=== PATIENT | male | born 1940 | race Caucasian/White ===

== ENCOUNTER 2020-05-21 12:24 | Inpatient (IN) | payer OTHER ==
[2020-05-19 12:05] VITALS: BP 125/78
[2020-05-19 13:14] LABS: BASOPHILS % (AUTO) 0.2 % (0.0-5.0); EOSINOPHILS % (AUTO) 2.3 % (0.0-8.0); HEMATOCRIT 40.5 % (42-54); LYMPHOCYTES % (AUTO) 18.4 % (21.0-51.0); MEAN CORPUSCULAR HEMOGLOBIN 29.7 pg (27.0-33.0); MEAN CORPUSCULAR HGB CONC 32.6 g/dL (32.0-36.0); MEAN CORPUSCULAR VOLUME 91.2 fL (79-99); MONOCYTES % (AUTO) 8.6 % (3.0-13.0); NEUTROPHILS % (AUTO) 70.3 % (40.0-77.0); PLATELET COUNT (AUTO) 208 K/uL (130-400); RED BLOOD CELL COUNT(AUTO) 4.44 MIL/uL (4.50-6.20); WHITE BLOOD COUNT (AUTO) 9.5 K/uL (4.8-10.8)
[2020-05-19 13:26] LABS: CREATININE 1.9 mg/dL (0.5-1.5); POTASSIUM 4.7 mmol/L (3.5-5.1)
[2020-05-19 13:35] LABS: INR 1.24 (0.85-1.15); PARTIAL THROMBOPLASTIN TIME 28.9 SEC (26.3-35.5); PROTHROMBIN TIME 13.3 SEC (9.6-11.6)
[2020-05-19 14:02] LABS: BILIRUBIN,URINE Negative (NEGATIVE); COLOR,URINE Yellow (YELLOW); GLUCOSE, URINE (UA) Negative (NEGATIVE); KETONES,URINE Negative (NEGATIVE); LEUKOCYTE ESTERASE ,URINE Negative (NEGATIVE); NITRATE,URINE Negative (NEGATIVE); OCCULT BLOOD,URINE Trace (NEGATIVE); PROTEIN,URINE POS 1+ mg/dL (NEGATIVE); UROBILINOGEN,URINE 0.2 mg/dL (0.2-1.0)
[2020-05-19 14:04] LABS: APPEARANCE,URINE CLEAR (CLEAR)
[2020-05-19 14:26] LABS: BACTERIA,URINE Rare /HPF (None Seen); RBC,URINE 0-1 /HPF (0-1); SQUAMOUS EPITHELIAL CELL,UR Rare /HPF (0-2); WBC,URINE 0-1 /HPF (0-1)
[2020-05-20] MEDS: SODIUM CHLORIDE 0.9% 1000ML 1,000 ML IV SCH (13:00)
--- NOTE | 2020-05-20 15:41 | NUR ---
LABS ABNORMAL LABS REPORTED TO LAUREN LASSITER, FURTHER ORDERS GIVEN AND WILL BE CARRIED OUT.
--- NOTE | 2020-05-20 15:50 | NUR ---
XRAY ABNORMAL CHEST XRAY REPORTED TO LAUREN , NO FURTHER ODERS GIVEN ON CHEST XRAY
[~2020-05-21] VITALS: Ht 182.9 cm; Wt 116.8 kg
[2020-05-21] VITALS (14 sets, daily range): BP systolic 107–160; BP diastolic 87–107
[~2020-05-21 12:24] MED LIST: AMIT25TA9 PO; ASPI-1443 PO; ATOR10TA69 PO; FISH1CAP27 PO; FURO20TA4 PO; LANS30CA55 PO; LINA5TAB PO; QUIN10TA PO; SODIUM CHLORIDE 0.9% 1000ML 1,000 ML IV SCH; TAMS-1 PO; VERA240T14 PO; WARF7.5T49 PO; ZINC50TA64 PO
[2020-05-21] MEDS ORDERED: NITROGLYCERIN 2 MG/VIAL VIAL IV ONE (12:58)
[2020-05-21] MEDS ORDERED: BIVALIRUDIN 250 MG/VIAL IV ONE (12:58)
[2020-05-21] MEDS ORDERED: IOHEXOL-350 50ML VIAL IV ONE (12:58)
[2020-05-21] MEDS ORDERED: IOHEXOL 350 MG/ML 100ML INFUS..BTL IV ONE (12:58)
[2020-05-21] MEDS ORDERED: FENTANYL CITRATE PF 50 MCG/1 ML 2ML VIAL ONE (12:59)
[2020-05-21] MEDS ORDERED: MIDAZOLAM HCL 1 MG/ML 2ML VIAL ONE (12:59)
[2020-05-21] MEDS ORDERED: LIDOCAINE HCL 2% 20ML ONE (12:59)
[2020-05-21 13:05] LABS: INR 1.1 (0.85-1.15); PROTHROMBIN TIME 11.8 SEC (9.6-11.6)
[2020-05-21] MEDS ORDERED: ACET600C5 PO (13:17)
[2020-05-21] MEDS ORDERED: METOPROLOL TARTRATE 1 MG/ML 5ML VIAL IV ONE ×2 (13:47→14:14)
[2020-05-21] MEDS ORDERED: ACETAMINOPHEN-CODEINE 300/30MG TAB PO PRN ×2 (14:15)
[2020-05-21] MEDS ORDERED: HYDRALAZINE HCL 20 MG/ML VIAL IV PRN (14:15)
[2020-05-21] MEDS ORDERED: DEXTROSE 50%-WATER 50 ML DISP.SYRIN IV PRN ×2 (14:15→16:30)
[2020-05-21] MEDS ORDERED: METOPROLOL TARTRATE 1 MG/ML 5ML VIAL IV PRN ×2 (14:15→21:15)
[2020-05-21] MEDS ORDERED: GLUCAGON 1MG KIT 1 MG ML IM PRN ×2 (14:15→16:30)
--- NOTE | 2020-05-21 14:35 | NUR ---
Pt received Pt received from cath lab technologist via bed accompanied by NIK Huerta. Pt AAOx3. Has dressing to right groin dry and intact. No tenderness nor swelling to site. Pt denies any c/o. Pt is to be admitted and report was received. Son is at bedside. Pt in good spirits. Pt arrived with life vest in place and was informed by NIK Huerta that wires were broken and was need to contact rep. As per pt it occured when attempting to remove. Lifevest rep Shannon was called and made aware of consult. Pt was received with saline lock only. BNP was drawn and pharmacy was contact for meds needed to be given not available through [facility] (Lasix IV and Toporol XL). Monitors in place; pt in no distress.
[2020-05-21] MEDS ORDERED: POTASSIUM CHLORIDE 20MEQ/100ML 100 ML IV PRN (14:45)
[2020-05-21] MEDS ORDERED: POTASSIUM CHLORIDE 20 MEQ ERTAB PO PRN (14:45)
[2020-05-21] MEDS ORDERED: LIDOCAINE HCL-MPF 1% 2ML VIAL IV PRN (14:45)
[2020-05-21] MEDS ORDERED: POTASSIUM CHLORIDE 10% ELIXIR 20 MEQ/15 ML UDCUP PO PRN (14:45)
[2020-05-21] MEDS: SODIUM CHLORIDE 0.9% 1000ML 1,000 ML IV SCH (15:25)
--- NOTE | 2020-05-21 15:40 | NUR ---
Transfer Pt was transferred to room 409 via bed with son at side. Report was given to NIK Wilson regarding pt's procedure, pending consult with life vest and condition and that meds were not available to be given. Pt was left in good spirits, talkative, no pain or discomfort.
[2020-05-21] MEDS: FUROSEMIDE 10 MG/ML 2ML VIAL IV SCH (16:04)
[2020-05-21] MEDS: METOPROLOL SUCCINATE 50 MG TAB.SR.24H PO SCH (16:04)
[2020-05-21 19:26] LABS: CREATININE 1.9 mg/dL (0.5-1.5); MAGNESIUM 1.8 mg/dL (1.80-2.40); POTASSIUM 4.3 mmol/L (3.5-5.1)
[2020-05-21] MEDS: AMITRIPTYLINE HCL 25 MG TABLET PO SCH (20:11)
[2020-05-21] MEDS: ASPIRIN 81 MG EC TAB PO SCH (20:12)
[2020-05-21] MEDS: TAMSULOSIN HCL 0.4 MG CAP.ER.24H PO SCH (20:12)
[2020-05-21] MEDS: ATORVASTATIN CALCIUM 10 MG TABLET PO SCH (20:22)
--- NOTE | 2020-05-21 21:06 | NUR ---
Notified MD Timothy Mckinnon who is combination presser for the night regarding patient in afib rvr in the 118-124 after dose of PRN metoprolol 5mg IV was given with no significant changes. Patient is asymptomatic and comfortable in bed. Denies of any chest pain. Patient has history of afib for 10 years now. He ordered to change metoprolol 5mg IV to give if heart rate sustaining and greater than 120's to be given every six hours PRN. Will monitor patient closely
[2020-05-21] MEDS ORDERED: MAGNESIUM 2GM PREMIX 50ML 50 ML IV PRN (21:45)
[2020-05-21] MEDS ORDERED: MAGNESIUM 2GM PREMIX 50ML 50 ML IV ONE (21:50)
[2020-05-22] MEDS: FUROSEMIDE 10 MG/ML 2ML VIAL IV SCH (00:23)
[2020-05-22] MEDS: METOPROLOL SUCCINATE 50 MG TAB.SR.24H PO SCH ×4 (00:23→21:18)
[2020-05-22 03:42] VITALS: BP 116/88
[2020-05-22] MEDS: SODIUM CHLORIDE 0.9% 1000ML 1,000 ML IV SCH (05:15)
[2020-05-22 05:48] LABS: HEMATOCRIT 39.7 % (42-54); MEAN CORPUSCULAR HEMOGLOBIN 30.1 pg (27.0-33.0); MEAN CORPUSCULAR HGB CONC 33.5 g/dL (32.0-36.0); MEAN CORPUSCULAR VOLUME 89.8 fL (79-99); RED BLOOD CELL COUNT(AUTO) 4.42 MIL/uL (4.50-6.20); RED CELL DISTRIBUTION WIDTH 14.2 % (11.0-15.5); WHITE BLOOD COUNT (AUTO) 12.3 K/uL (4.8-10.8)
[2020-05-22 06:06] LABS: CREATININE 1.9 mg/dL (0.5-1.5); MAGNESIUM 2.2 mg/dL (1.80-2.40)
[2020-05-22 07:00] VITALS: BP 119/80
[2020-05-22 07:07] LABS: POTASSIUM 4.2 mmol/L (3.5-5.1)
[2020-05-22] MEDS: LINAGLIPTIN 5 MG TABLET PO SCH (08:15)
[2020-05-22] MEDS ORDERED: FUROSEMIDE 10 MG/ML 2ML VIAL IV SCH (09:00)
[2020-05-22] MEDS: FUROSEMIDE 40 MG TABLET PO SCH (09:00)
[2020-05-22 11:00] VITALS: BP 138/95
[2020-05-22] MEDS ORDERED: METOPROLOL SUCCINATE 50 MG TAB.SR.24H PO SCH (11:15)
[2020-05-22] MEDS: PANTOPRAZOLE SODIUM 40 MG TABLET.DR PO SCH (12:39)
--- NOTE | 2020-05-22 13:47 | NUR ---
BRANDY SANTIAGO Spoke with spouse on phone. As per spouse, patient is independent prior to admission, lives at home with spouse. Patient has a CPAP at home through [facility]. Denies any other equipments/services. Feels safe to go back home, spouse able to assist with transportation and needs as necessary. DC plan to home. CM to continue to follow up. Addendum: 05/22/20 at 1349 by IVY WEBER Amended: Links added.
--- NOTE | 2020-05-22 14:53 | NUR ---
[id number] PATIENT SIGNED IM LETTER, I FAXED IM LETTER TO [id number] AND PLACED IN CHART UNDER CONSENT TAB.
[2020-05-22 16:00] VITALS: BP 131/69
[2020-05-22] MEDS ORDERED: WARFARIN SODIUM 7.5 MG TAB PO SCH (16:00)
--- NOTE | 2020-05-22 19:20 | NUR ---
PM Assessment Received pt lying in bed moderate high back rest, pleasantly conversant with life vest on. Routine assessment done, plan of care discuss, confirmed awareness of Metoprolol dosage change to 100mg BID, importance of keeping the left vest on at all times. Pt currently denies discomfort, hoping for d/c home tomorrow.
[2020-05-22 20:00] VITALS: BP 128/86
[2020-05-22] MEDS: AMITRIPTYLINE HCL 25 MG TABLET PO SCH (21:15)
[2020-05-22] MEDS: ATORVASTATIN CALCIUM 10 MG TABLET PO SCH (21:16)
[2020-05-22] MEDS: TAMSULOSIN HCL 0.4 MG CAP.ER.24H PO SCH (21:16)
[2020-05-22] MEDS: ASPIRIN 81 MG EC TAB PO SCH (21:16)
[2020-05-23] VITALS: BP 118/84
[2020-05-23 04:00] VITALS: BP 136/93
[2020-05-23] MEDS: SODIUM CHLORIDE 0.9% 1000ML 1,000 ML IV SCH (05:21)
[2020-05-23 06:11] LABS: BASOPHILS % (AUTO) 0.3 % (0.0-5.0); EOSINOPHILS % (AUTO) 2.5 % (0.0-8.0); HEMATOCRIT 39.7 % (42-54); LYMPHOCYTES % (AUTO) 16.5 % (21.0-51.0); MEAN CORPUSCULAR HEMOGLOBIN 29.6 pg (27.0-33.0); MEAN CORPUSCULAR HGB CONC 32.5 g/dL (32.0-36.0); MEAN CORPUSCULAR VOLUME 91.1 fL (79-99); MONOCYTES % (AUTO) 11.8 % (3.0-13.0); NEUTROPHILS % (AUTO) 68.6 % (40.0-77.0); PLATELET COUNT (AUTO) 184 K/uL (130-400); RED BLOOD CELL COUNT(AUTO) 4.36 MIL/uL (4.50-6.20); RED CELL DISTRIBUTION WIDTH 14.2 % (11.0-15.5); WHITE BLOOD COUNT (AUTO) 11.9 K/uL (4.8-10.8)
[2020-05-23 06:31] LABS: CREATININE 1.9 mg/dL (0.5-1.5); POTASSIUM 4.3 mmol/L (3.5-5.1)
[2020-05-23 06:45] LABS: INR 1.06 (0.85-1.15); PROTHROMBIN TIME 11.4 SEC (9.6-11.6)
[2020-05-23] MEDS: METOPROLOL SUCCINATE 50 MG TAB.SR.24H PO SCH (07:54)
[2020-05-23] MEDS: LINAGLIPTIN 5 MG TABLET PO SCH (07:54)
[2020-05-23] MEDS: FUROSEMIDE 40 MG TABLET PO SCH (07:54)
[2020-05-23] MEDS: PANTOPRAZOLE SODIUM 40 MG TABLET.DR PO SCH (07:55)
[2020-05-23 08:00] VITALS: BP 134/97
[2020-05-23 11:21] VITALS: BP 124/72
[2020-05-23] MEDS ORDERED: METO-409 PO (11:58)
[2020-05-23] MEDS ORDERED: FURO40TA5 PO (11:58)
[2020-05-23] MEDS ORDERED: PANTOPRAZOLE SODIUM 40 MG TABLET.DR PO SCH (12:30)
--- NOTE | 2020-05-23 13:30 | NUR ---
DISCHARGE INSTRUCTIONS GIVEN TO PATIENT, SON AT BEDSIDE. MADE AWARE OF NEED TO FOLLOW UP WITH DR. ANDRES AND DR. BARRON. MADE AWARE OF MEDICATION CHANGES AND NEW PRESCRIPTIONS. PATIENT AT THIS TIME DENIES ANY CHEST PAIN OR SHORTNESS OF BREATH. IV AND TELE DISCONTINUED. PATIENT WILL BE TAKEN HOME BY HIS SON
== END 2020-05-23 13:45 | disposition home or self-care (01) | DRG 286 ==
LOC: DAH 12:24 → DAHIP 12:25 → 4BH 15:35
PROVIDERS: ADMIT Internal Medicine; ATTEND Internal Medicine
PROC: 4A023N7 Measurement of Cardiac Sampling and Pressure, Left Heart, Percutaneous Approach (ICD-10-PCS; 2020-05-21)
PROC: B2111ZZ Fluoroscopy of Multiple Coronary Arteries using Low Osmolar Contrast (ICD-10-PCS; 2020-05-21)
PROC: 5A09357 Assistance with Respiratory Ventilation, Less than 24 Consecutive Hours, Continuous Positive Airway Pressure (ICD-10-PCS; principal; 2020-05-22)
PROC: 5A09357 Assistance with Respiratory Ventilation, Less than 24 Consecutive Hours, Continuous Positive Airway Pressure (ICD-10-PCS; 2020-05-23)
DX: I13.0 Hypertensive heart and chronic kidney disease with heart failure and stage 1 through stage 4 chronic kidney disease, or unspecified chronic kidney disease (principal); I50.43 Acute on chronic combined systolic (congestive) and diastolic (congestive) heart failure; D68.69 Other thrombophilia; I48.11 Longstanding persistent atrial fibrillation; I42.9 Cardiomyopathy, unspecified; N18.30 Chronic kidney disease, stage 3 unspecified; I25.10 Atherosclerotic heart disease of native coronary artery without angina pectoris; Z88.8 Allergy status to other drugs, medicaments and biological substances; E11.22 Type 2 diabetes mellitus with diabetic chronic kidney disease; Z96.652 Presence of left artificial knee joint; E78.5 Hyperlipidemia, unspecified; Z87.891 Personal history of nicotine dependence; Z79.01 Long term (current) use of anticoagulants; Z82.49 Family history of ischemic heart disease and other diseases of the circulatory system; I48.0 Paroxysmal atrial fibrillation; Z83.2 Family history of diseases of the blood and blood-forming organs and certain disorders involving the immune mechanism
CPT/HCPCS: 36415; 71045; 80048; 81001; 82948; 83735; 83880; 84145; 85025; 85027; 85610; 85730; 93005; 93458; C1894; G0378; J0583; J1644; J1940; J2250; J3010; J3475; J3490; Q9967

== ENCOUNTER 2020-08-04 08:58 | Inpatient (IN) | payer OTHER ==
[~2020-08-04] VITALS: Ht 185.4 cm; Wt 115.4 kg
[~2020-08-04 08:58] MED LIST changes: +ACET600C5 PO; -ASPI-1443 PO; -FURO20TA4 PO; +FURO40TA5 PO; +METO-409 PO; -SODIUM CHLORIDE 0.9% 1000ML 1,000 ML IV SCH; -VERA240T14 PO
[2020-08-04 09:14] LABS: BASOPHILS % (AUTO) 0.3 % (0.0-5.0); EOSINOPHILS % (AUTO) 3.3 % (0.0-8.0); HEMATOCRIT 45.1 % (42-54); LYMPHOCYTES % (AUTO) 18.1 % (21.0-51.0); MEAN CORPUSCULAR HEMOGLOBIN 29.3 pg (27.0-33.0); MEAN CORPUSCULAR HGB CONC 32.6 g/dL (32.0-36.0); MONOCYTES % (AUTO) 9.6 % (3.0-13.0); NEUTROPHILS % (AUTO) 68.4 % (40.0-77.0); PLATELET COUNT (AUTO) 180 K/uL (130-400); RED BLOOD CELL COUNT(AUTO) 5.01 MIL/uL (4.50-6.20); RED CELL DISTRIBUTION WIDTH 15.7 % (11.0-15.5); WHITE BLOOD COUNT (AUTO) 9.9 K/uL (4.8-10.8)
[2020-08-04 09:36] LABS: PARTIAL THROMBOPLASTIN TIME 54.4 SEC (26.3-35.5)
[2020-08-04 09:41] LABS: B-TYPE NATRIURETIC PEPTIDE 1110 pg/mL (0-100)
[2020-08-04 09:45] LABS: ALBUMIN 3.3 g/dL (3.5-5.0); BILIRUBIN,TOTAL 1.7 mg/dL (0.2-1.0); CREATININE 1.7 mg/dL (0.5-1.5); POTASSIUM 3.7 mmol/L (3.5-5.1)
[2020-08-04 09:48] LABS: PROTHROMBIN TIME 46.3 SEC (9.6-11.6)
[2020-08-04 09:49] LABS: INR 5.01 (0.85-1.15)
[2020-08-04] MEDS ORDERED: NITROGLYCERIN 1GM OINT 1 INCH/1GM TD ONE (10:21)
[2020-08-04] MEDS ORDERED: FUROSEMIDE 40MG VIAL ONE (10:21)
[2020-08-04] MEDS ORDERED: ONDANSETRON 4MG INJ IV PRN (10:30)
[2020-08-04] MEDS ORDERED: ACETAMINOPHEN 325 MG TAB PO PRN ×2 (10:30)
[2020-08-04] MEDS: NITROGLYCERIN 1GM OINT 1 INCH/1GM TD SCH ×2 (10:30→18:30)
[2020-08-04] MEDS ORDERED: LACTULOSE 20 GM/30 ML UDCUP PO PRN (10:30)
[2020-08-04] MEDS ORDERED: NITROGLYCERIN 0.4 MG SL TAB SL PRN (10:30)
[2020-08-04 11:09] LABS: APPEARANCE,URINE Clear (CLEAR); BILIRUBIN,URINE Negative (NEGATIVE); COLOR,URINE Yellow (YELLOW); GLUCOSE, URINE (UA) Negative (NEGATIVE); KETONES,URINE Negative (NEGATIVE); LEUKOCYTE ESTERASE ,URINE Negative (NEGATIVE); NITRATE,URINE Negative (NEGATIVE); OCCULT BLOOD,URINE Small (NEGATIVE); PH,URINE 6.5 (5.0-8.0); PROTEIN,URINE POS 1+ mg/dL (NEGATIVE); UROBILINOGEN,URINE 0.2 mg/dL (0.2-1.0)
[2020-08-04 11:25] LABS: THYROID STIMULATING HORMONE 3.49 uIU/mL (0.36-3.74)
[2020-08-04 11:35] LABS: BACTERIA,URINE Rare /HPF (None Seen); RBC,URINE 0-1 /HPF (0-1); SQUAMOUS EPITHELIAL CELL,UR Rare /HPF (0-2); WBC,URINE 0-1 /HPF (0-1)
[2020-08-04] MEDS ORDERED: METOPROLOL TARTRATE 1 MG/ML 5ML VIAL IV PRN (13:00)
[2020-08-04] MEDS: INSULIN HUMULIN R 100 UNIT/ML 3ML SQ SCH ×2 (16:30→21:00)
[2020-08-04] MEDS ORDERED: METOPROLOL TARTRATE 25 MG TAB ONE (16:58)
[2020-08-04] MEDS ORDERED: METOPROLOL TARTRATE 50 MG TAB PO SCH (20:00)
[2020-08-04 20:15] VITALS: BP 167/107
[2020-08-04] MEDS: AMITRIPTYLINE 25 MG TABLET PO SCH (21:54)
[2020-08-04] MEDS: ATORVASTATIN 10 MG TABLET PO SCH (21:54)
[2020-08-04] MEDS: FAMOTIDINE 20MG VIAL IV SCH (21:54)
[2020-08-04] MEDS: METOPROLOL TARTRATE 25 MG TAB PO SCH (21:54)
[2020-08-04] MEDS: TAMSULOSIN HCL 0.4 MG CAP.ER.24H PO SCH (21:54)
[2020-08-04] MEDS: FUROSEMIDE 40MG VIAL IVP SCH (22:00)
[2020-08-05 00:09] VITALS: BP 146/93
[2020-08-05] MEDS: NITROGLYCERIN 1GM OINT 1 INCH/1GM TD SCH (02:56)
[2020-08-05 04:21] VITALS: BP 150/93
[2020-08-05 06:25] LABS: BASOPHILS % (AUTO) 0.3 % (0.0-5.0); EOSINOPHILS % (AUTO) 2.9 % (0.0-8.0); HEMATOCRIT 42.8 % (42-54); MEAN CORPUSCULAR HEMOGLOBIN 29.2 pg (27.0-33.0); MEAN CORPUSCULAR HGB CONC 32.7 g/dL (32.0-36.0); MEAN CORPUSCULAR VOLUME 89.4 fL (79-99); MONOCYTES % (AUTO) 9.9 % (3.0-13.0); NEUTROPHILS % (AUTO) 70.6 % (40.0-77.0); PLATELET COUNT (AUTO) 173 K/uL (130-400); RED BLOOD CELL COUNT(AUTO) 4.79 MIL/uL (4.50-6.20); RED CELL DISTRIBUTION WIDTH 15.4 % (11.0-15.5); WHITE BLOOD COUNT (AUTO) 11.6 K/uL (4.8-10.8)
[2020-08-05] MEDS: INSULIN HUMULIN R 100 UNIT/ML 3ML SQ SCH ×4 (06:32→20:48)
[2020-08-05 06:44] LABS: PARTIAL THROMBOPLASTIN TIME 48.7 SEC (26.3-35.5)
[2020-08-05 07:10] LABS: INR 3.93 (0.85-1.15); PROTHROMBIN TIME 37.1 SEC (9.6-11.6)
[2020-08-05 07:31] LABS: B-TYPE NATRIURETIC PEPTIDE 1220 pg/mL (0-100)
[2020-08-05 08:07] VITALS: BP 166/96
[2020-08-05] MEDS: LINAGLIPTIN 5 MG TABLET PO SCH (08:53)
[2020-08-05] MEDS: METOPROLOL TARTRATE 25 MG TAB PO SCH (08:53)
[2020-08-05] MEDS: FUROSEMIDE 40MG VIAL IVP SCH ×2 (08:53→20:27)
[2020-08-05] MEDS: FAMOTIDINE 20MG VIAL IV SCH (08:53)
[2020-08-05] MEDS ORDERED: METOPROLOL TARTRATE 50 MG TAB PO SCH (09:00)
[2020-08-05] MEDS ORDERED: LISINOPRIL 10 MG TABLET PO SCH (09:00)
[2020-08-05 09:40] LABS: CREATININE 1.8 mg/dL (0.5-1.5); MAGNESIUM 1.9 mg/dL (1.80-2.40); POTASSIUM 3.7 mmol/L (3.5-5.1)
[2020-08-05] MEDS: METOPROLOL SUCCINATE 50 MG TAB.SR.24H PO SCH ×2 (10:43→20:27)
[2020-08-05] MEDS: LOSARTAN 50 MG TABLET PO SCH (10:44)
[2020-08-05 12:12] VITALS: BP 153/92
[2020-08-05 18:56] VITALS: BP 154/80
[2020-08-05 20:00] VITALS: BP 139/66
[2020-08-05] MEDS: ATORVASTATIN 10 MG TABLET PO SCH (20:27)
[2020-08-05] MEDS: AMITRIPTYLINE 25 MG TABLET PO SCH (20:27)
[2020-08-05] MEDS: TAMSULOSIN HCL 0.4 MG CAP.ER.24H PO SCH (20:27)
[2020-08-06] VITALS (7 sets, daily range): BP systolic 127–157; BP diastolic 73–97
[2020-08-06 04:11] LABS: CREATININE 2.1 mg/dL (0.5-1.5); POTASSIUM 3.5 mmol/L (3.5-5.1)
[2020-08-06 04:39] LABS: INR 2.41 (0.85-1.15); PROTHROMBIN TIME 23.8 SEC (9.6-11.6)
[2020-08-06 04:40] LABS: PARTIAL THROMBOPLASTIN TIME 41.2 SEC (26.3-35.5)
[2020-08-06] MEDS: INSULIN HUMULIN R 100 UNIT/ML 3ML SQ SCH ×4 (05:15→20:36)
[2020-08-06] MEDS ORDERED: KCL 20 MEQ ERTAB PO ONE (05:15)
[2020-08-06] MEDS: FUROSEMIDE 40MG VIAL IVP SCH (09:25)
[2020-08-06] MEDS: LINAGLIPTIN 5 MG TABLET PO SCH (09:25)
[2020-08-06] MEDS: FAMOTIDINE 20MG VIAL IV SCH (09:25)
[2020-08-06] MEDS: METOPROLOL SUCCINATE 50 MG TAB.SR.24H PO SCH ×2 (09:26→22:52)
[2020-08-06] MEDS: LOSARTAN 50 MG TABLET PO SCH (09:26)
[2020-08-06] MEDS: APIXABAN 5 MG TABLET PO SCH ×2 (10:31→22:53)
[2020-08-06] MEDS ORDERED: FUROSEMIDE 40MG VIAL IV SCH (17:00)
[2020-08-06] MEDS: ATORVASTATIN 10 MG TABLET PO SCH (22:52)
[2020-08-06] MEDS: AMITRIPTYLINE 25 MG TABLET PO SCH (22:52)
[2020-08-06] MEDS: TAMSULOSIN HCL 0.4 MG CAP.ER.24H PO SCH (22:52)
[2020-08-07 03:28] VITALS: BP 126/89
[2020-08-07 04:01] LABS: BASOPHILS % (AUTO) 0.4 % (0.0-5.0); EOSINOPHILS % (AUTO) 4.6 % (0.0-8.0); HEMATOCRIT 41.5 % (42-54); LYMPHOCYTES % (AUTO) 15.3 % (21.0-51.0); MEAN CORPUSCULAR VOLUME 87.9 fL (79-99); MONOCYTES % (AUTO) 9.7 % (3.0-13.0); NEUTROPHILS % (AUTO) 69.7 % (40.0-77.0); PLATELET COUNT (AUTO) 165 K/uL (130-400); RED BLOOD CELL COUNT(AUTO) 4.72 MIL/uL (4.50-6.20); RED CELL DISTRIBUTION WIDTH 15.1 % (11.0-15.5); WHITE BLOOD COUNT (AUTO) 10.6 K/uL (4.8-10.8)
[2020-08-07 04:13] LABS: CREATININE 1.9 mg/dL (0.5-1.5); POTASSIUM 3.5 mmol/L (3.5-5.1)
[2020-08-07 04:18] LABS: B-TYPE NATRIURETIC PEPTIDE 311 pg/mL (0-100)
[2020-08-07] MEDS: INSULIN HUMULIN R 100 UNIT/ML 3ML SQ SCH ×2 (06:49→12:43)
[2020-08-07 08:00] VITALS: BP 148/80
[2020-08-07] MEDS ORDERED: FUROSEMIDE 40 MG TABLET PO SCH (09:00)
[2020-08-07] MEDS: LINAGLIPTIN 5 MG TABLET PO SCH (09:11)
[2020-08-07] MEDS: LOSARTAN 50 MG TABLET PO SCH (09:11)
[2020-08-07] MEDS: METOPROLOL SUCCINATE 50 MG TAB.SR.24H PO SCH (09:11)
[2020-08-07] MEDS: APIXABAN 5 MG TABLET PO SCH (09:11)
[2020-08-07] MEDS: FAMOTIDINE 20MG VIAL IV SCH (09:11)
[2020-08-07 11:56] VITALS: BP 119/89
[2020-08-07 16:00] VITALS: BP 126/51
[2020-08-07] MEDS ORDERED: APIX5TAB PO (16:58)
[2021-01-28] MEDS ORDERED: METO-391 PO (14:31)
[2021-03-25] MEDS ORDERED: BIMA2.5D4 OP (15:14)
[2021-03-25] MEDS ORDERED: PANT40TA54 PO (15:14)
== END 2020-08-07 17:27 | disposition home or self-care (01) | DRG 291 ==
LOC: EDH 08:58 → EDHIP 10:30 → 4CH 21:12
PROVIDERS: ADMIT Internal Medicine; ATTEND Internal Medicine
PROC: 5A09357 Assistance with Respiratory Ventilation, Less than 24 Consecutive Hours, Continuous Positive Airway Pressure (ICD-10-PCS; principal; 2020-08-06)
PROC: 5A09357 Assistance with Respiratory Ventilation, Less than 24 Consecutive Hours, Continuous Positive Airway Pressure (ICD-10-PCS; 2020-08-07)
DX: I13.0 Hypertensive heart and chronic kidney disease with heart failure and stage 1 through stage 4 chronic kidney disease, or unspecified chronic kidney disease (principal); I50.23 Acute on chronic systolic (congestive) heart failure; N17.9 Acute kidney failure, unspecified; I48.11 Longstanding persistent atrial fibrillation; I48.92 Unspecified atrial flutter; I42.8 Other cardiomyopathies; I25.10 Atherosclerotic heart disease of native coronary artery without angina pectoris; N18.30 Chronic kidney disease, stage 3 unspecified; E11.22 Type 2 diabetes mellitus with diabetic chronic kidney disease; E66.9 Obesity, unspecified; E78.5 Hyperlipidemia, unspecified; G47.33 Obstructive sleep apnea (adult) (pediatric); K21.9 Gastro-esophageal reflux disease without esophagitis; Z96.652 Presence of left artificial knee joint; R06.03 Acute respiratory distress; I34.0 Nonrheumatic mitral (valve) insufficiency; R79.1 Abnormal coagulation profile; Z68.34 Body mass index [BMI] 34.0-34.9, adult; Z79.01 Long term (current) use of anticoagulants; Z79.899 Other long term (current) drug therapy; Z87.891 Personal history of nicotine dependence; Z90.49 Acquired absence of other specified parts of digestive tract; Z88.8 Allergy status to other drugs, medicaments and biological substances; Z82.49 Family history of ischemic heart disease and other diseases of the circulatory system; Z20.822 Contact with and (suspected) exposure to COVID-19
CPT/HCPCS: 36415; 71045; 71046; 80048; 80053; 81001; 82550; 82948; 83735; 83880; 84100; 84145; 84443; 84484; 85025; 85610; 85730; 87426; 93005; 94760; G0378; J1815; J1940; J3490; U0003

== ENCOUNTER → 2020-11-26 | Outpatient (CLI) | payer OTHER ==
[~2020-11-26] MED LIST changes: +APIX5TAB PO; -WARF7.5T49 PO
== END | disposition home or self-care (01) ==
LOC: SHCH 14:30
PROVIDERS: ATTEND Internal Medicine Cardiovascular Disease
DX: I51.7 Cardiomegaly (principal); I48.0 Paroxysmal atrial fibrillation
CPT/HCPCS: 93306; 93356

== ENCOUNTER 2021-01-29 05:52 | Observation (INO) | payer OTHER ==
[2021-01-27 13:39] LABS: BASOPHILS % (AUTO) 0.4 % (0.0-5.0); EOSINOPHILS % (AUTO) 2.5 % (0.0-8.0); HEMATOCRIT 46.2 % (42-54); LYMPHOCYTES % (AUTO) 17.3 % (21.0-51.0); MEAN CORPUSCULAR HEMOGLOBIN 30.1 pg (27.0-33.0); MEAN CORPUSCULAR HGB CONC 32.5 g/dL (32.0-36.0); MEAN CORPUSCULAR VOLUME 92.6 fL (79-99); MONOCYTES % (AUTO) 12.3 % (3.0-13.0); NEUTROPHILS % (AUTO) 67.4 % (40.0-77.0); PLATELET COUNT (AUTO) 161 K/uL (130-400); RED BLOOD CELL COUNT(AUTO) 4.99 MIL/uL (4.50-6.20); RED CELL DISTRIBUTION WIDTH 15.2 % (11.0-15.5)
[2021-01-27 13:45] LABS: CREATININE 1.8 mg/dL (0.5-1.5); POTASSIUM 4.4 mmol/L (3.5-5.1)
[2021-01-27 14:14] LABS: INR 1.03 (0.85-1.15); PROTHROMBIN TIME 11.2 SEC (9.6-11.6)
[2021-01-27 14:16] LABS: PARTIAL THROMBOPLASTIN TIME 28.3 SEC (26.3-35.5)
[2021-01-28 13:29] VITALS: BP 104/70
[~2021-01-29] VITALS: Ht 182.9 cm; Wt 111.3 kg
[2021-01-29] VITALS (10 sets, daily range): BP systolic 104–170; BP diastolic 72–92
[~2021-01-29 05:52] MED LIST changes: -ACET600C5 PO; +CEFAZOLIN SODIUM 1 GM VIAL IVP SCH; +METO-391 PO; -METO-409 PO
[2021-01-29] MEDS ORDERED: BUPIVACAINE/PF 0.25% 30ML VIAL IJ ONE (07:26)
[2021-01-29] MEDS ORDERED: FENTANYL CITRATE PF 50 MCG/1 ML 2ML VIAL ONE (07:27)
[2021-01-29] MEDS ORDERED: LIDOCAINE HCL 1% MDV 50ML VIAL ONE (07:27)
[2021-01-29] MEDS ORDERED: MIDAZOLAM HCL 1 MG/ML 2ML VIAL ONE ×2 (07:27→08:11)
[2021-01-29] MEDS ORDERED: CEFAZOLIN SODIUM 1 GM VIAL ONE (07:27)
[2021-01-29] MEDS ORDERED: IODIXANOL 320 MG/ML 100 ML VIAL ONE (07:37)
[2021-01-29] MEDS ORDERED: APAP-CODEINE 300/30MG TAB PO PRN (10:15)
[2021-01-29] MEDS: METOPROLOL SUCCINATE 50 MG TAB.SR.24H PO SCH (20:45)
[2021-01-29] MEDS ORDERED: AMITRIPTYLINE 25 MG TABLET PO SCH (21:00)
[2021-01-29] MEDS ORDERED: TAMSULOSIN HCL 0.4 MG CAP.ER.24H PO SCH (21:00)
[2021-01-29] MEDS ORDERED: ATORVASTATIN 10 MG TABLET PO SCH (21:00)
[2021-01-30 03:09] VITALS: BP 140/79
[2021-01-30 04:48] LABS: HEMATOCRIT 42.4 % (42-54); MEAN CORPUSCULAR HGB CONC 33.3 g/dL (32.0-36.0); MEAN CORPUSCULAR VOLUME 90.2 fL (79-99); RED BLOOD CELL COUNT(AUTO) 4.7 MIL/uL (4.50-6.20); RED CELL DISTRIBUTION WIDTH 14.8 % (11.0-15.5); WHITE BLOOD COUNT (AUTO) 9.7 K/uL (4.8-10.8)
[2021-01-30 04:55] LABS: BILIRUBIN,TOTAL 0.9 mg/dL (0.2-1.0); CREATININE 1.7 mg/dL (0.5-1.5); PHOSPHORUS 3.1 mg/dL (2.5-4.9); POTASSIUM 4.1 mmol/L (3.5-5.1); TOTAL PROTEIN, SERUM 7.1 g/dL (6.0-8.3)
[2021-01-30 08:31] VITALS: BP 118/81
[2021-01-30] MEDS ORDERED: LINAGLIPTIN 5 MG TABLET PO SCH (09:00)
[2021-01-30] MEDS ORDERED: PANTOPRAZOLE 40 MG TAB DR PO SCH (09:00)
[2021-01-30] MEDS ORDERED: FUROSEMIDE 40 MG TABLET PO SCH (09:00)
[2021-01-30] MEDS ORDERED: ZINC SULFATE 220 CAPSULE PO SCH (09:00)
[2021-01-30] MEDS ORDERED: LISINOPRIL 10 MG TABLET PO SCH (09:00)
[2021-01-30] MEDS: METOPROLOL SUCCINATE 50 MG TAB.SR.24H PO SCH (09:50)
[2021-01-30 11:59] VITALS: BP 123/66
[2021-01-31] MEDS ORDERED: APIXABAN 5 MG TABLET PO SCH (09:00)
== END 2021-01-30 15:30 | disposition home or self-care (01) ==
LOC: DAH 05:52 → OBSVTOIN 05:53 → DAHIP 05:53 → INTOOBSV 05:53 → DAH 05:53 → 4CH 10:30
PROVIDERS: ADMIT Internal Medicine; ATTEND Internal Medicine
DX: I42.0 Dilated cardiomyopathy (principal); I48.19 Other persistent atrial fibrillation; I25.10 Atherosclerotic heart disease of native coronary artery without angina pectoris; I50.23 Acute on chronic systolic (congestive) heart failure; M19.90 Unspecified osteoarthritis, unspecified site; K21.9 Gastro-esophageal reflux disease without esophagitis; I11.0 Hypertensive heart disease with heart failure; E11.9 Type 2 diabetes mellitus without complications; E78.5 Hyperlipidemia, unspecified; D84.9 Immunodeficiency, unspecified; Z79.01 Long term (current) use of anticoagulants; Z79.899 Other long term (current) drug therapy; Z95.810 Presence of automatic (implantable) cardiac defibrillator
CPT/HCPCS: 33225; 33249; 36415 ×2; 71045; 80048; 80053; 82948 ×6; 83735; 84100; 85025; 85027; 85610; 85730; 93005; A4215; A4216; A4221; A4222; A4223 ×3; A4606; A4663; C1769; C1882; C1895; C1900; G0378 ×29; J0690; J2250 ×2; J3010; J3490 ×2; J7030; Q9967; 99156; 99157

== ENCOUNTER 2021-03-26 05:51 | Day surgery (SDC) | payer OTHER ==
[2021-03-24 11:30] LABS: BASOPHILS % (AUTO) 0.3 % (0.0-5.0); EOSINOPHILS % (AUTO) 2.6 % (0.0-8.0); HEMATOCRIT 47.5 % (42-54); LYMPHOCYTES % (AUTO) 17.2 % (21.0-51.0); MEAN CORPUSCULAR HEMOGLOBIN 29.9 pg (27.0-33.0); MEAN CORPUSCULAR HGB CONC 32.4 g/dL (32.0-36.0); MEAN CORPUSCULAR VOLUME 92.2 fL (79-99); MONOCYTES % (AUTO) 9.2 % (3.0-13.0); NEUTROPHILS % (AUTO) 70.4 % (40.0-77.0); PLATELET COUNT (AUTO) 144 K/uL (130-400); RED BLOOD CELL COUNT(AUTO) 5.15 MIL/uL (4.50-6.20); RED CELL DISTRIBUTION WIDTH 13.9 % (11.0-15.5); WHITE BLOOD COUNT (AUTO) 9.4 K/uL (4.8-10.8)
[2021-03-24 11:43] LABS: POTASSIUM 5.3 mmol/L (3.5-5.1)
[2021-03-24 12:03] LABS: INR 1.09 (0.85-1.15); PROTHROMBIN TIME 11.8 SEC (9.6-11.6)
[2021-03-24 12:04] LABS: PARTIAL THROMBOPLASTIN TIME 30.7 SEC (26.3-35.5)
[2021-03-24 15:07] VITALS: BP 119/77
[~2021-03-26] VITALS: Ht 182.9 cm; Wt 109.1 kg
[2021-03-26] VITALS (9 sets, daily range): BP systolic 87–124; BP diastolic 60–81
[~2021-03-26 05:51] MED LIST changes: +BIMA2.5D4 OP; -CEFAZOLIN SODIUM 1 GM VIAL IVP SCH; -LANS30CA55 PO; +PANT40TA54 PO
[2021-03-26] MEDS ORDERED: 0.9% NACL 500ML IV.SOLN 500 ML IV SCH (06:00)
[2021-03-26] MEDS ORDERED: 0.9%NACL 1000ML 1,000 ML IV ONE (07:11)
[2021-03-26] MEDS ORDERED: HEPARIN 10,000 UNIT/10ML (1,000 UNIT/ML) VIAL ONE (09:25)
[2021-03-26] MEDS ORDERED: MIDAZOLAM HCL 1 MG/ML 2ML VIAL ONE (09:26)
[2021-03-26] MEDS ORDERED: MEPERIDINE-PF 25 MG/ML SYG ONE (09:26)
[2021-03-26] MEDS ORDERED: LIDOCAINE HCL 400MG/20ML VIAL ONE (09:26)
[2021-03-26] MEDS ORDERED: FENTANYL CITRATE PF 50 MCG/1 ML 2ML VIAL ONE (09:56)
== END 2021-03-26 14:35 | disposition home or self-care (01) ==
LOC: DAH 05:51
PROVIDERS: ATTEND Internal Medicine Cardiovascular Disease
DX: I48.11 Longstanding persistent atrial fibrillation (principal); E11.22 Type 2 diabetes mellitus with diabetic chronic kidney disease; I13.0 Hypertensive heart and chronic kidney disease with heart failure and stage 1 through stage 4 chronic kidney disease, or unspecified chronic kidney disease; N18.9 Chronic kidney disease, unspecified; I50.43 Acute on chronic combined systolic (congestive) and diastolic (congestive) heart failure; I42.8 Other cardiomyopathies; I25.10 Atherosclerotic heart disease of native coronary artery without angina pectoris; M19.90 Unspecified osteoarthritis, unspecified site; E78.5 Hyperlipidemia, unspecified; K21.9 Gastro-esophageal reflux disease without esophagitis; Z95.810 Presence of automatic (implantable) cardiac defibrillator; Z79.01 Long term (current) use of anticoagulants; Z87.891 Personal history of nicotine dependence; Z79.899 Other long term (current) drug therapy
CPT/HCPCS: 36415 ×2; 80048; 82948 ×2; 84132; 85025; 85610; 85730; 93650; A4215; A4216; A4221; A4222; A4223 ×3; A4606; A4649 ×2; A4663; A6260; C1732; C1894; J1644; J2250; J3010; J3490; J7030; 99156; 99157; J2175

== ENCOUNTER 2025-06-25 05:58 | Day surgery (SDC) | payer OTHER ==
--- NOTE | 2025-06-23 11:17 | EKG ---
[facility] Test Date: 2025-06-23 Test Time: 11:58:29 Pat Name: MARIA ELENA FLORES Department: [facility] Room: Gender: Lead Tinner: 8749 : 1940 Requested By: ARIELLA BARRON Order Number: [id number] Reading MD: Laura Capps Measurements Intervals [place] Rate: 72 P: 0 OR: 76 QRS: 177 QRSD: 170 T: 5 QT: 519 QTc: 570 Interpretive Statements Ventricular-paced rhythm Biventricular paced rhythm Compared to ECG 01/27/2021 13:21:36 Atrial fibrillation no longer present Myocardial infarct finding no longer present Electronically Signed On 06-23-2025 13:49:25 GAS ANALYST by Laura Capps Please click the below link to view image of tracing.
[2025-06-23 11:26] LABS: IMMATURE GRANULOCYTE ABSOLUTE 0.03 K/uL (0-1); NUCLEATED RED BLOOD CELLS 0.0 % (0.0-0.19); PLATELET COUNT (AUTO) 149 K/uL (130-400); RED BLOOD CELL COUNT(AUTO) 4.81 MIL/uL (4.50-6.20); RED CELL DISTRIBUTION WIDTH 14.6 % (11.0-15.5); WHITE BLOOD COUNT (AUTO) 8.3 K/uL (4.8-10.8)
[2025-06-23 11:42] LABS: CREATININE 2.3 mg/dL (0.5-1.3); GLOMERULAR FILTR. RATE CALC 27.0 mL/min (>90); GLUCOSE,RANDOM 95.0 mg/dL (70-105); SODIUM SERUM 143.0 mmol/L (136-145); UREA NITROGEN, BLOOD 32.0 mg/dL (7-18)
[2025-06-23 11:50] VITALS: BP 148/90; PULSE 89; RESP 18; TEMP 98.2
[2025-06-23 12:16] LABS: INR 1.15 (0.85-1.15)
--- NOTE | 2025-06-24 15:06 | NUR ---
report reported bun and creat to dr brewster. ok to proceed
[2025-06-25] VITALS (7 sets, daily range): BP systolic 117–153; BP diastolic 71–90; PULSE 70–87; RESP 13–16; TEMP 97.9
[~2025-06-25] VITALS: Ht 182.9 cm; Wt 118.5 kg
[~2025-06-25 05:58] MED LIST changes: +AMIO200T73 PO; -AMIT25TA9 PO; -APIX5TAB PO; +ASPI-1443 PO; -ATOR10TA69 PO; +ATOR40TA71 PO; -BIMA2.5D4 OP; +DABI150C PO; +EMPA25TA PO; -FISH1CAP27 PO; +GABA300C PO; +INSU100V37 SQ; +LANS30CA55 PO; +LATA2.5D7 OU; -LINA5TAB PO; -METO-391 PO; +METO-409 PO; +OMEG1CAP99 PO; -PANT40TA54 PO; -QUIN10TA PO; +SACU1TAB PO; +SEMA1PEN3 SQ; -TAMS-1 PO; +VITAMIN B1 PO; -ZINC50TA64 PO
[2025-06-25] MEDS ORDERED: 0.9%NACL 1000ML 1,000 ML IV SCH (07:00)
[2025-06-25] MEDS ORDERED: LIDOCAINE HCL 1% MDV 50ML VIAL ONE (07:11)
[2025-06-25] MEDS ORDERED: SODIUM BICARB 50MEQ 50ML VIAL 50 ML ONE (07:15)
[2025-06-25] MEDS ORDERED: MIDAZOLAM HCL 1 MG/ML 2ML VIAL ONE ×2 (07:36→07:57)
[2025-06-25] MEDS ORDERED: BACITRACIN 1 EACH PACKET TP ONE (08:25)
[2025-06-25] MEDS ORDERED: TRAM50TA4 PO (08:45)
[2025-06-25] MEDS ORDERED: LIDOCAINE HCL 400MG/20ML VIAL ONE (08:57)
[2025-06-25] MEDS ORDERED: HEParin-NS 1,000 UNIT/500 ML 1,000 ML IV ONE (08:57)
[2025-06-25] MEDS ORDERED: VERAPAMIL HCL 2.5 MG/ML VIAL ONE (08:57)
[2025-06-25] MEDS ORDERED: NITROGLYCERIN 50MG VIAL ONE (08:58)
[2025-06-25] MEDS ORDERED: IOHEXOL 350 MG/ML 100ML INFUS..BTL IV ONE (08:59)
--- NOTE | 2025-06-25 10:20 | NUR ---
BOTH PT AND DAUGHTER GIVEN VERBAL AND WRITTEN DISCHARGE INSTRUCTIONS. INSTRUCTIONS ON DAILY DRESSING CHANGES X 5 DAYS GIVEN. IV REMOVED SITE ASYMPTOMATIC. PT TAKEN OUT VIA WHEELCHAIR DAUGHTER DRIVING.
== END 2025-06-25 10:35 | disposition home or self-care (01) ==
LOC: DAH 05:58
PROVIDERS: ATTEND Internal Medicine Cardiovascular Disease
DX: Z45.02 Encounter for adjustment and management of automatic implantable cardiac defibrillator (principal); I42.8 Other cardiomyopathies; I48.21 Permanent atrial fibrillation; I25.10 Atherosclerotic heart disease of native coronary artery without angina pectoris; I13.0 Hypertensive heart and chronic kidney disease with heart failure and stage 1 through stage 4 chronic kidney disease, or unspecified chronic kidney disease; E11.22 Type 2 diabetes mellitus with diabetic chronic kidney disease; N18.9 Chronic kidney disease, unspecified; I50.23 Acute on chronic systolic (congestive) heart failure; E78.5 Hyperlipidemia, unspecified; K21.9 Gastro-esophageal reflux disease without esophagitis; I87.2 Venous insufficiency (chronic) (peripheral); M19.90 Unspecified osteoarthritis, unspecified site; Z82.49 Family history of ischemic heart disease and other diseases of the circulatory system; Z88.5 Allergy status to narcotic agent; Z98.890 Other specified postprocedural states; Z79.899 Other long term (current) drug therapy
CPT/HCPCS: 80048; 85025; 85610; 85730; 36415; 93005; 99156; 99157 ×3; 33264; 82948; A4223 ×3; C1882; J3010; J0690; J3490 ×5; J0665; J1644 ×2; J2250 ×2; Q9967; A4215; A6251; A4222; A4221; A4663; A4216; A6258; A4606